=== PATIENT | female | born 1945 | race Hispanic/Latino ===

== ENCOUNTER 2017-08-27 11:10 | Day surgery (SDC) | payer MEDICARE ==
[~2017-08-27 11:10] MED LIST: IOPIDINE ONE; MYDRIACYL ONE; NEOFRIN ONE
[2017-08-27] MEDS ORDERED: NEOFRIN OS ONE (11:26)
[2017-08-27] MEDS ORDERED: IOPIDINE OS ONE ×2 (11:26→11:49)
[2017-08-27] MEDS ORDERED: MYDRIACYL OS ONE (11:26)
[2017-08-27 12:43] VITALS: BP 149/84
== END 2017-08-27 12:39 | disposition home or self-care (01) ==
LOC: OR 11:10
PROVIDERS: ATTEND Specialist
DX: H26.492 Other secondary cataract, left eye (principal); B19.20 Unspecified viral hepatitis C without hepatic coma; Z87.891 Personal history of nicotine dependence; M19.90 Unspecified osteoarthritis, unspecified site; Z86.12 Personal history of poliomyelitis; Z98.890 Other specified postprocedural states; Z90.710 Acquired absence of both cervix and uterus